=== PATIENT | female | born 1975 | race Native Hawaiian/Other Pacific Islander ===

== ENCOUNTER 2018-06-14 23:20 | Inpatient (IN) | payer MEDICAID, OTHER ==
[2018-06-15 00:29] LABS: Basophils % (Auto) 0.3 % (0.0-1.8); Eosinophils % (Auto) 0.1 % (0.0-4.3); Hemoglobin 15.9 gm/dl (10.1-14.3); Lymphocytes # (Auto) 1.1 K/mm3 (1.2-5.4); Lymphocytes % (Auto) 8.7 % (13.4-35.0); Mean Corpuscular HGB Conc 35 % (30-34); Mean Corpuscular Hemoglobin 32 pg (28-32); Mean Corpuscular Volume 92 fl (79-97); Monocytes # (Auto) 0.3 K/mm3 (0.0-0.8); Monocytes % (Auto) 2.6 % (0.0-7.3); Platelet Count 246 K/mm3 (140-440); Red Blood Count 5.03 M/mm3 (3.65-5.03); Red Cell Distribution Width 13.6 % (13.2-15.2)
[2018-06-15 00:45] LABS: Alanine Aminotransferase 37 units/L (7-56); Albumin 4.9 g/dL (3.9-5); BUN/Creatinine Ratio 32; Blood Urea Nitrogen 19 mg/dL (7-17); Calcium 9.8 mg/dL (8.4-10.2); Hemolysis Index 5
[2018-06-15 02:29] LABS: Bacteria,Urine 1+ /HPF (Negative); Bilirubin,Urine NEG (Negative); Blood,Urine NEG (Negative); Color,Urine Yellow (Yellow); HCG Qualitative,Urine Negative (Negative); Mucus,Urine 3+ /HPF; Urobilinogen,Urine < 2.0 mg/dL (<2.0)
--- NOTE | 2018-06-15 06:32 | Emergency Department Report ---
ED Abdominal Pain HPI - General Chief Complaint: Abdominal Pain Stated Complaint: ABD PAIN/EMESIS Time Seen by Provider: 06/15/18 06:30 Source: patient, tube rebuilder Mode of arrival: Ambulatory Limitations: Language Barrier - History of Present Illness Initial Comments: This is a 42-year-old Portuguese-speaking female. I've obtained the history is Portuguese. She arrives here with her and her son. She states her abdominal pain began at about 11:00 last night. It is located in the epigastric to right upper quadrant region. She also feels it somewhat in the back but not prominently. She's had no fever or chills. She complains of nausea and vomiting. She's had no obvious signs of GI bleeding. She's had no prior emergency department visits for abdominal pain. Patient denies any prior surgery. She's not had a recent consumption of alcohol. She has no family history of gallstones that she is aware of. She has not recently traveled. MD Complaint: abdominal pain -: hour(s) Location: RUQ, epigastric Radiation: back (some associated back pain) Migration to: no migration Severity: moderate, severe Severity scale (0 -10): 0 Quality: aching Consistency: constant Improves With: nothing Worsens With: nothing Associated Symptoms: nausea, vomiting. denies: diarrhea, fever, chills - Related Data Home Medications Medication Instructions Recorded Confirmed Last Taken No Known Home Medications [No 04/30/14 12/28/15 Unknown Reported Home Medications] Allergies Allergy/AdvReac Type Severity Reaction Status Date / Time No Known Allergies Allergy Verified 06/14/18 23:39 ED Review of Systems ROS: Stated complaint: ABD PAIN/EMESIS Other details as noted in HPI Constitutional: denies: chills, fever Eyes: denies: eye pain, eye discharge, vision change ENT: denies: ear pain, throat pain Respiratory: denies: cough, shortness of breath, wheezing Cardiovascular: denies: chest pain, palpitations Endocrine: no symptoms reported Gastrointestinal: abdominal pain, nausea, vomiting. denies: diarrhea Genitourinary: denies: urgency, dysuria, discharge Musculoskeletal: denies: back pain, joint swelling, arthralgia Skin: denies: rash, lesions Neurological: denies: headache, weakness, paresthesias Psychiatric: denies: anxiety, depression Hematological/Lymphatic: denies: easy bleeding, easy bruising ED Past Medical Hx - Past Medical History Hx Hypertension: No Hx Congestive Heart Failure: No Hx Diabetes: No Hx Deep Vein Thrombosis: No Hx Renal Disease: No Hx Sickle Cell Disease: No Hx Seizures: No Hx Asthma: No Hx COPD: No Hx HIV: No - Surgical History Past Surgical History?: No - Social History Smoking Status: Never Smoker Substance Use Type: None - Medications Home Medications: Home Medications Medication Instructions Recorded Confirmed Last Taken Type No Known Home Medications [No 04/30/14 12/28/15 Unknown History Reported Home Medications] ED Physical Exam - General Limitations: Language Barrier General appearance: alert, in no apparent distress - Head Head exam: Present: atraumatic, normocephalic - Eye Eye exam: Present: normal appearance, PERRL, EOMI. Absent: scleral icterus - ENT ENT exam: Present: mucous membranes moist - Neck Neck exam: Present: normal inspection. Absent: tenderness, meningismus - Respiratory Respiratory exam: Present: normal lung sounds bilaterally. Absent: respiratory distress - Cardiovascular Cardiovascular Exam: Present: regular rate, normal rhythm. Absent: systolic murmur, diastolic murmur, rubs, gallop - GI/Abdominal GI/Abdominal exam: Present: soft, distended (perhaps mildly), tenderness ( epigastric discomfort negative Malik's), normal bowel sounds. Absent: guarding , rebound, rigid, organomegaly, mass, bruit, pulsatile mass, hernia - Extremities Exam Extremities exam: Present: normal inspection - Back Exam Back exam: Present: normal inspection - Neurological Exam Neurological exam: Present: alert, oriented X3, CN II-XII intact. Absent: motor sensory deficit - Psychiatric Psychiatric exam: Present: normal affect, normal mood - Skin Skin exam: Present: warm, dry, intact, normal color. Absent: rash ED Course Vital Signs 06/14/18 06/15/18 06/15/18 23:41 06:57 08:26 Temperature 98.0 F 97.6 F Pulse Rate 92 H 76 Respiratory 16 17 Rate Blood Pressure 112/78 Blood Pressure 101/70 [Left] O2 Sat by Pulse 98 99 96 Oximetry 06/15/18 06/15/18 06/15/18 08:31 08:35 08:36 Temperature 98.7 F Pulse Rate 66 Respiratory 14 Rate Blood Pressure 107/66 107/66 Blood Pressure 107/66 [Left] O2 Sat by Pulse 97 97 97 Oximetry 06/15/18 06/15/18 06/15/18 08:41 08:45 09:23 Temperature Pulse Rate Respiratory Rate Blood Pressure 107/66 107/66 107/66 Blood Pressure [Left] O2 Sat by Pulse 97 97 99 Oximetry 06/15/18 06/15/18 06/15/18 09:25 09:31 09:35 Temperature Pulse Rate Respiratory Rate Blood Pressure 107/66 107/66 107/66 Blood Pressure [Left] O2 Sat by Pulse 98 98 98 Oximetry 06/15/18 06/15/18 06/15/18 09:41 09:45 09:51 Temperature Pulse Rate Respiratory Rate Blood Pressure 107/66 107/66 107/66 Blood Pressure [Left] O2 Sat by Pulse 98 98 98 Oximetry 06/15/18 06/15/18 06/15/18 09:55 10:00 10:05 Temperature Pulse Rate Respiratory Rate Blood Pressure 107/66 124/83 124/83 Blood Pressure [Left] O2 Sat by Pulse 97 99 98 Oximetry 06/15/18 06/15/18 06/15/18 10:11 10:15 10:21 Temperature Pulse Rate Respiratory Rate Blood Pressure 124/83 124/83 124/83 Blood Pressure [Left] O2 Sat by Pulse 98 99 98 Oximetry 06/15/18 06/15/18 06/15/18 10:25 10:31 10:35 Temperature Pulse Rate Respiratory Rate Blood Pressure 124/83 124/83 124/83 Blood Pressure [Left] O2 Sat by Pulse 97 99 99 Oximetry 06/15/18 06/15/18 06/15/18 10:41 10:45 10:51 Temperature Pulse Rate Respiratory Rate Blood Pressure 124/83 124/83 124/83 Blood Pressure [Left] O2 Sat by Pulse 99 99 99 Oximetry 06/15/18 06/15/18 06/15/18 10:55 11:01 11:05 Temperature Pulse Rate Respiratory Rate Blood Pressure 124/83 110/85 110/85 Blood Pressure [Left] O2 Sat by Pulse 98 100 99 Oximetry 06/15/18 06/15/18 06/15/18 11:11 11:15 11:21 Temperature Pulse Rate Respiratory Rate Blood Pressure 110/85 110/85 110/85 Blood Pressure [Left] O2 Sat by Pulse 98 99 99 Oximetry 0706/15/18 06/15/18 11:25 11:31 11:35 Temperature Pulse Rate Respiratory Rate Blood Pressure 110/85 110/85 110/85 Blood Pressure [Left] O2 Sat by Pulse 98 99 99 Oximetry 06/15/18 06/15/18 11:41 11:45 Temperature Pulse Rate Respiratory Rate Blood Pressure 110/85 110/85 Blood Pressure [Left] O2 Sat by Pulse 98 99 Oximetry - Reevaluation(s) Reevaluation #1: It appeared most likely diagnosis was biliary colic. However the patient's ultrasound was negative. We proceeded to CT exam. 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 Surgery was paged. The patient was admitted to Dr. Schroeder for further care and evaluation. She had persistent nausea. Therefore an NG tube was placed. His position was verified on KUB as adequate. Dr. Novak has been consulted. I will defer to her as to whether and when she wants to repeat the patient's CT scan with oral contrast. 06/15/18 15:29 Reevaluation #2: Spoke to surgery and she is aware of the consultation. She was not that impressed with the CT findings. He stated that gastroenteritis might still be a possibility. The patient was admitted in stable condition by Dr. Schroeder. 06/15/18 16:20 ED Medical Decision Making - Lab Data Result diagrams: 06/14/18 23:53 06/14/18 23:53 Laboratory Results - last 24 hr 06/14/18 06/14/18 06/15/18 23:53 23:53 01:12 WBC 13.1 H RBC 5.03 Hgb 15.9 H Hct 46.0 H MCV 92 MCH 32 MCHC 35 H RDW 13.6 Plt Count 246 Lymph % (Auto) 8.7 L Day % (Auto) 2.6 Eos % (Auto) 0.1 Baso % (Auto) 0.3 Lymph # 1.1 L Day # 0.3 Eos # 0.0 Baso # 0.0 Seg Neutrophils % 88.3 H Seg Neutrophils # 11.6 H Sodium 139 Potassium 4.1 Chloride 100.0 Carbon Dioxide 24 Anion Gap 19 BUN 19 H Creatinine 0.6 L Estimated GFR > 60 BUN/Creatinine Ratio 32 Glucose 144 H Calcium 9.8 Total Bilirubin 0.50 AST 30 ALT 37 Alkaline Phosphatase 80 Total Protein 8.0 Albumin 4.9 Albumin/Globulin Ratio 1.6 Lipase Urine Color Yellow Urine Turbidity Clear Urine pH 6.0 Ur Specific [place] 1.030 Urine Protein 100 mg/dl Urine Glucose (UA) Neg Urine Ketones 20 Urine Blood Neg Urine Nitrite Neg Urine Bilirubin Neg Urine Urobilinogen < 2.0 Ur Leukocyte Esterase Neg Urine WBC (Auto) 3.0 Urine RBC (Auto) 1.0 U Epithel Cells (Auto) 5.0 Urine Bacteria (Auto) 1+ Urine Mucus 3+ Urine HCG, Qual Negative 06/15/18 04:50 WBC RBC Hgb Hct MCV MCH MCHC RDW Plt Count Lymph % (Auto) Day % (Auto) Eos % (Auto) Baso % (Auto) Lymph # Day # Eos # Baso # Seg Neutrophils % Seg Neutrophils # Sodium Potassium Chloride Carbon Dioxide Anion Gap BUN Creatinine Estimated GFR BUN/Creatinine Ratio Glucose Calcium Total Bilirubin AST ALT Alkaline Phosphatase Total Protein Albumin Albumin/Globulin Ratio Lipase 11 L Urine Color Urine Turbidity Urine pH Ur Specific [place] Urine Protein Urine Glucose (UA) Urine Ketones Urine Blood Urine Nitrite Urine Bilirubin Urine Urobilinogen Ur Leukocyte Esterase Urine WBC (Auto) Urine RBC (Auto) U Epithel Cells (Auto) Urine Bacteria (Auto) Urine Mucus Urine HCG, Qual - EKG Data -: EKG Interpreted by [place] EKG shows normal: sinus rhythm, axis, intervals, QRS complexes, ST-T waves Rate: normal - EKG Data Interpretation: nonspecific ST-T wave chan (motion artifact/nonspecific changes) - Radiology Data Radiology results: report reviewed (small bowel obstruction per radiologist) Critical care attestation.: If time is entered above; I have spent that time in minutes in the direct care of this critically ill patient, excluding procedure time. ED Disposition Clinical Impression: Partial small bowel obstruction Disposition: OP ADMIT IP TO THIS HOSP Is pt being admited?: Yes Does the pt Need Aspirin: No Condition: Stable Instructions: Abdominal Pain (ED) Referrals: PRIMARY CAREMD [Primary Care Provider] - 3-5 Days Time of Disposition: 16:21
[2018-06-15] MEDS ORDERED: MORPHINE IV ONE ×2 (08:11→11:09)
[2018-06-15] MEDS ORDERED: ZOFRAN IV ONE ×2 (08:11→11:09)
[2018-06-15] MEDS ORDERED: NACL 0.9% 1000 ML 2,000 ML IV ONE (08:20)
[2018-06-15] MEDS ORDERED: PROTONIX IV ONE (08:20)
[2018-06-15] MEDS ORDERED: ZOSYN/NS 4.5GM/100ML 4.5 GM/100 ML VIAL IV ONE (08:30)
--- NOTE | 2018-06-15 09:20 | Ultrasound Report ---
ULTRASOUND ABDOMEN COMPLETE: TECHNIQUE: Transabdominal ultrasound with color Doppler interrogation. HISTORY: Right upper quadrant pain. COMPARISON: none. FINDINGS: LIVER: Moderate fatty infiltration is identified throughout the liver parenchyma. No focal mass, surface nodularity or enlargement is appreciated. BILIARY SYSTEM: Normal. PANCREAS: Normal. SPLEEN: Normal. KIDNEYS: Normal. AORTA/IVC: Normal. ASCITES: None. IMPRESSION: Hepatic steatosis.
--- NOTE | 2018-06-15 12:52 | Cat Scan Report ---
CT ABDOMEN PELVIS WITH CONTRAST: HISTORY: Right upper quadrant pain. COMPARISON: none. TECHNIQUE: Helical CT in 1.25mm intervals following IV contrast. Sagittal and coronal reconstructions. FINDINGS: Lung bases: Normal. Liver: Moderate fatty infiltration throughout the liver parenchyma. No enlargement or focal mass. Biliary system: Normal. Pancreas: Normal. Spleen: Normal. Kidneys/ureters/bladder: Normal. Adrenal glands: Normal. Aorta: Normal. Intestines: There are a few mildly dilated and fluid filled loops of small bowel in the midabdomen. Distal small bowel loops and colon are decompressed. No obvious mass or focal inflammation. Appendix: Normal. Pelvic viscera: Normal. Ascites: None. Adenopathy: None. Musculoskeletal: Normal. IMPRESSION: Mildly dilated small bowel loops are identified concerning for partial small bowel obstruction. Hepatic steatosis.
[2018-06-15] MEDS ORDERED: REGLAN IV ONE (13:58)
[2018-06-15] MEDS ORDERED: DILAUDID IV ONE (14:01)
--- NOTE | 2018-06-15 17:51 | XRay Report ---
FINAL REPORT EXAM: XR ABDOMEN 1V AP HISTORY: NG tube placement TECHNIQUE: Portable examination of the abdomen PRIORS: None. FINDINGS: Pneumoperitoneum: None visible. Abnormal fluid levels: None visible. Visceromegaly: None visible. Mass: None visible. Abnormal calcification: None. Intestinal distention: None. Intestinal obstructive pattern: None. Stool volume: Normal. Retained IV contrast in the bilateral renal collecting system and partly visualized urinary bladder. Distal tip gastric tube is present in the central upper abdomen, in the expected region of the mid stomach. IMPRESSION: Nonspecific bowel gas pattern without intestinal distention in the visualized abdomen Distal tip gastric tube is present in the central upper abdomen, in the expected region of the mid stomach.
--- NOTE | 2018-06-15 18:25 | Consultation ---
History of Present Illness Consult date: 06/15/18 Chief complaint: abd pain, n/v - History of present illness History of present illness: 42-year-old female with no past medical history presented to the emergency room with complaints of abdominal pain, nausea, vomiting. The patient states that she was feeling well up until yesterday when she started to experience epigastric abdominal pain which is radiating to bilateral flanks. This was sharp in nature and of moderate intensity. This was associated with nausea and emesis which was nonbilious and nonbloody. The emesis was white in color. She has never experienced the symptoms in the past. She denies sick contacts or recent travel. There are no specific factors that brought on the symptoms. She states that she's been having normal bowel movements and passing flatus. An NG tube was placed in the emergency room for findings concerning for partial small bowel obstruction on a CAT scan. Patient states that her pain has now resolved and that she feels hungry. Past History Past Medical History: No medical history Past Surgical History: No surgical history Social history: no significant social history Family history: no significant family history Medications and Allergies Allergies Allergy/AdvReac Type Severity Reaction Status Date / Time No Known Allergies Allergy Verified 06/15/18 16:53 Home Medications Medication Instructions Recorded Confirmed Last Taken Type No Known Home Medications [No 04/30/14 06/15/18 Unknown History Reported Home Medications] Active Meds: Active Medications Dextrose/Sodium Chloride (D5ns) 1,000 mls @ 125 mls/hr IV DIRECT BIB Review of Systems All systems: negative (10 point review of systems was performed and negative except for that listed in HPI) Exam Vital Signs Temp Pulse Resp BP Pulse Ox 98.0 F 92 H 16 112/78 98 06/14/18 23:41 06/14/18 23:41 06/14/18 23:41 06/14/18 23:41 06/14/18 23:41 Narrative exam: Gen.: Awake, alert, oriented 3. No apparent distress NGT: NG tube in place with light green and red drainage CV: S1, S2 present Respiratory: Even and unlabored Abdomen: Soft, nondistended, nontender. No rebound, rigidity, guarding Extremities: No clubbing, cyanosis, edema Results - Labs 06/14/18 23:53 06/14/18 23:53 Abnormal lab results 06/14/18 06/14/18 06/15/18 Range/Units 23:53 23:53 04:50 WBC 13.1 H (4.5-11.0) K/mm3 Hgb 15.9 H (10.1-14.3) gm/dl Hct 46.0 H (30.3-42.9) % MCHC 35 H (30-34) % Lymph % (Auto) 8.7 L (13.4-35.0) % Lymph # 1.1 L (1.2-5.4) K/mm3 Seg Neutrophils % 88.3 H (40.0-70.0) % Seg Neutrophils # 11.6 H (1.8-7.7) K/mm3 BUN 19 H (7-17) mg/dL Creatinine 0.6 L (0.7-1.2) mg/dL Glucose 144 H (65-100) mg/dL Lipase 11 L (13-60) units/L Diabetes panel 06/14/18 Range/Units 23:53 Sodium 139 (137-145) mmol/L Potassium 4.1 (3.6-5.0) mmol/L Chloride 100.0 (98-107) mmol/L Carbon Dioxide 24 (22-30) mmol/L BUN 19 H (7-17) mg/dL Creatinine 0.6 L (0.7-1.2) mg/dL Glucose 144 H (65-100) mg/dL Calcium 9.8 (8.4-10.2) mg/dL AST 30 (5-40) units/L ALT 37 (7-56) units/L Alkaline Phosphatase 80 (35-129) units/L Total Protein 8.0 (6.3-8.2) g/dL Albumin 4.9 (3.9-5) g/dL Calcium panel 06/14/18 Range/Units 23:53 Calcium 9.8 (8.4-10.2) mg/dL Albumin 4.9 (3.9-5) g/dL Pituitary panel 06/14/18 Range/Units 23:53 Sodium 139 (137-145) mmol/L Potassium 4.1 (3.6-5.0) mmol/L Chloride 100.0 (98-107) mmol/L Carbon Dioxide 24 (22-30) mmol/L BUN 19 H (7-17) mg/dL Creatinine 0.6 L (0.7-1.2) mg/dL Glucose 144 H (65-100) mg/dL Calcium 9.8 (8.4-10.2) mg/dL Adrenal panel 06/14/18 Range/Units 23:53 Sodium 139 (137-145) mmol/L Potassium 4.1 (3.6-5.0) mmol/L Chloride 100.0 (98-107) mmol/L Carbon Dioxide 24 (22-30) mmol/L BUN 19 H (7-17) mg/dL Creatinine 0.6 L (0.7-1.2) mg/dL Glucose 144 H (65-100) mg/dL Calcium 9.8 (8.4-10.2) mg/dL Total Bilirubin 0.50 (0.1-1.2) mg/dL AST 30 (5-40) units/L ALT 37 (7-56) units/L Alkaline Phosphatase 80 (35-129) units/L Total Protein 8.0 (6.3-8.2) g/dL Albumin 4.9 (3.9-5) g/dL - Imaging Abdominal x-ray: report reviewed, image reviewed CT scan - abdomen: report reviewed, image reviewed CT scan - pelvis: report reviewed, image reviewed Assessment and Plan 42-year-old female with 1. Abdominal pain likely secondary to gastroenteritis, low suspicion for partial small bowel obstruction 2. Dehydration Plan: 1. NGT inserted in ER. Will continue to low continuous suction for tonight 2. strict I/Os 3. IVF, NPO except ice chips 4. repeat cbc, bmp in am 5. KUB in am 6. further recs pending patient's clinical course Thank you for this consultation, please call with questions or concerns.
--- NOTE | 2018-06-16 00:48 | History and Physical Report ---
History of Present Illness Date of examination: 06/15/18 Date of admission: 06/15/18 15:19 Past History Past Medical History: No medical history Past Surgical History: No surgical history Social history: no significant social history Family history: no significant family history Medications and Allergies Allergies Allergy/AdvReac Type Severity Reaction Status Date / Time No Known Allergies Allergy Verified 06/15/18 16:53 Home Medications Medication Instructions Recorded Confirmed Last Taken Type No Known Home Medications [No 04/30/14 06/15/18 Unknown History Reported Home Medications] Active Meds: Active Medications Dextrose/Sodium Chloride (D5ns) 1,000 mls @ 125 mls/hr IV DIRECT BIB Exam - Constitutional Vitals: Temp Pulse Resp BP Pulse Ox 97.6 F 60 20 84/47 96 06/15/18 23:00 06/15/18 23:00 06/15/18 23:00 06/15/18 23:00 06/15/18 23:00 Results - Labs CBC & Chem 7: 06/14/18 23:53 06/14/18 23:53 Labs: Laboratory Last Values WBC 13.1 K/mm3 (4.5-11.0) H 06/14/18 23:53 RBC 5.03 M/mm3 (3.65-5.03) 06/14/18 23:53 Hgb 15.9 gm/dl (10.1-14.3) H 06/14/18 23:53 Hct 46.0 % (30.3-42.9) H 06/14/18 23:53 MCV 92 fl (79-97) 06/14/18 23:53 MCH 32 pg (28-32) 06/14/18 23:53 MCHC 35 % (30-34) H 06/14/18 23:53 RDW 13.6 % (13.2-15.2) 06/14/18 23:53 Plt Count 246 K/mm3 (140-440) 06/14/18 23:53 Lymph % (Auto) 8.7 % (13.4-35.0) L 06/14/18 23:53 [place] % (Auto) 2.6 % (0.0-7.3) 06/14/18 23:53 Eos % (Auto) 0.1 % (0.0-4.3) 06/14/18 23:53 Baso % (Auto) 0.3 % (0.0-1.8) 06/14/18 23:53 Lymph # 1.1 K/mm3 (1.2-5.4) L 06/14/18 23:53 [place] # 0.3 K/mm3 (0.0-0.8) 06/14/18 23:53 Eos # 0.0 K/mm3 (0.0-0.4) 06/14/18 23:53 Baso # 0.0 K/mm3 (0.0-0.1) 06/14/18 23:53 Seg Neutrophils % 88.3 % (40.0-70.0) H 06/14/18 23:53 Seg Neutrophils # 11.6 K/mm3 (1.8-7.7) H 06/14/18 23:53 Sodium 139 mmol/L (137-145) 06/14/18 23:53 Potassium 4.1 mmol/L (3.6-5.0) 06/14/18 23:53 Chloride 100.0 mmol/L (98-107) 06/14/18 23:53 Carbon Dioxide 24 mmol/L (22-30) 06/14/18 23:53 Anion Gap 19 mmol/L 06/14/18 23:53 BUN 19 mg/dL (7-17) H 06/14/18 23:53 Creatinine 0.6 mg/dL (0.7-1.2) L 06/14/18 23:53 Estimated GFR > 60 ml/min 06/14/18 23:53 BUN/Creatinine Ratio 32 % 06/14/18 23:53 Glucose 144 mg/dL (65-100) H 06/14/18 23:53 Lactic Acid 1.50 mmol/L (0.7-2.0) 06/15/18 08:29 Calcium 9.8 mg/dL (8.4-10.2) 06/14/18 23:53 Total Bilirubin 0.50 mg/dL (0.1-1.2) 06/14/18 23:53 AST 30 units/L (5-40) 06/14/18 23:53 ALT 37 units/L (7-56) 06/14/18 23:53 Alkaline Phosphatase 80 units/L (35-129) 06/14/18 23:53 Total Protein 8.0 g/dL (6.3-8.2) 06/14/18 23:53 Albumin 4.9 g/dL (3.9-5) 06/14/18 23:53 Albumin/Globulin Ratio 1.6 % 06/14/18 23:53 Lipase 11 units/L (13-60) L 06/15/18 04:50 Urine Color Yellow (Yellow) 06/15/18 01:12 Urine Turbidity Clear (Clear) 06/15/18 01:12 Urine pH 6.0 (5.0-7.0) 06/15/18 01:12 Ur Specific [place] 1.030 (1.003-1.030) 06/15/18 01:12 Urine Protein 100 mg/dl mg/dL (Negative) 06/15/18 01:12 Urine Glucose (UA) Neg mg/dL (Negative) 06/15/18 01:12 Urine Ketones 20 mg/dL (Negative) 06/15/18 01:12 Urine Blood Neg (Negative) 06/15/18 01:12 Urine Nitrite Neg (Negative) 06/15/18 01:12 Urine Bilirubin Neg (Negative) 06/15/18 01:12 Urine Urobilinogen < 2.0 mg/dL (<2.0) 06/15/18 01:12 Ur Leukocyte Esterase Neg (Negative) 06/15/18 01:12 Urine WBC (Auto) 3.0 /HPF (0.0-6.0) 06/15/18 01:12 Urine RBC (Auto) 1.0 /HPF (0.0-6.0) 06/15/18 01:12 U Epithel Cells (Auto) 5.0 /HPF (0-13.0) 06/15/18 01:12 Urine Bacteria (Auto) 1+ /HPF (Negative) 06/15/18 01:12 Urine Mucus 3+ /HPF 06/15/18 01:12 Urine HCG, Qual Negative (Negative) 06/15/18 01:12
[2018-06-16] MEDS ORDERED: TYLENOL PO PRN (00:49)
[2018-06-16] MEDS ORDERED: MORPHINE IV PRN (00:49)
[2018-06-16] MEDS ORDERED: ZOFRAN IV PRN (00:49)
[2018-06-16] MEDS ORDERED: SODIUM CHLORIDE FLUSH SYRINGE 10 ML IV PRN (00:49)
[2018-06-16] MEDS ORDERED: AMBIEN PO PRN (00:49)
[2018-06-16] MEDS: D5NS 1,000 ML IV SCH ×2 (02:54→11:21)
--- NOTE | 2018-06-16 06:41 | Event Note ---
Date: 06/15/18 See H/p in reports [facility]
[2018-06-16] MEDS: ZOSYN/NS 4.5GM/100ML 4.5 GM/100 ML VIAL IV SCH ×2 (07:22→14:13)
--- NOTE | 2018-06-16 08:13 | History and Physical Report ---
CHIEF COMPLAINT: Abdominal pain, nausea, vomiting since yesterday. HISTORY OF PRESENT ILLNESS: A 42-year-old with no significant past medical history, comes in for diffuse abdominal pain, nausea, and vomiting about 6-8 times since yesterday prompt. Unable to eat. Abdominal pain is about 8 on a scale of 1-10. No diarrhea. No sick contacts. No surgeries in the past. No recent travel. The patient had NG tube placed in the Emergency Room for partial small-bowel obstruction on the CAT scan. After the NG tube, her pain has become better. The pain is about 7 on a scale of 1-10. PAST MEDICAL HISTORY: No significant past medical history. PAST SURGICAL HISTORY: None. SOCIAL HISTORY: Does not smoke. No alcohol, no recreational drugs. Lives with family. FAMILY HISTORY: No significant family history. REVIEW OF SYSTEMS: Significant for nausea, vomiting, and abdominal pain of 1 day duration. Otherwise, review of systems is essentially negative. PHYSICAL EXAMINATION: GENERAL: Middle-aged female in mild distress secondary to abdominal pain. VITAL SIGNS: Blood pressure was 190, blood pressure 98/66, temperature 97.6, sats 100%, pulse is 76. HEENT: Unremarkable. Pupils equal and reactive. NECK: Supple, no lymphadenopathy, no thyromegaly. LUNGS: Clear to auscultation and percussion. Good air entry. CARDIOVASCULAR: S1, S2 heard. No gallop, no murmur, no rub. Apical impulse in left fifth intercostal space and midclavicular line. ABDOMEN: Slightly distended and decreased bowel sounds present. Tender all over. No guarding, no rigidity. Hernial orifices are normal. EXTREMITIES: Good pedal pulses. No pedal edema. LABORATORY DATA AND IMAGING STUDIES: CT of the abdomen shows few mildly dilated and fluid filled loops of small bowel in the mid abdomen. Distal small bowel and colon are decompressed. No obvious mass or focal inflammation. Abdominal x-ray shows nonspecific bowel gas pattern without intestinal distention and the visualized abdomen. Distal tip of the gastric tube is present in the central upper abdomen in the expected region of the mid stomach. Right upper quadrant sonogram, hepatic steatosis, no cholecystitis. Labs are significant for white count of 13,100, H and H of 15.9 and 46.0, platelet count of 246,000. Hemoglobin A1c 6.1. Glucose is 144. Electrolytes are normal. BUN and creatinine is 19 and 0.6. Urine is negative. ASSESSMENT AND PLAN: 1. Small-bowel obstruction, partial. We will treat conservatively for the time being and we will also consult Surgery. NG tube to low suction. IV antibiotics empirically. Strict I's and O's. Repeat the KUB in the morning. 2. Hyperglycemia, mild. We will trend it. If necessary, coverage. 3. Deep venous thrombosis prophylaxis, Lovenox 40 mg subcutaneous daily. JOB# [id number] VSM/NTS
--- NOTE | 2018-06-16 08:23 | Progress Note ---
Hospitalist Physical - Constitutional Vitals: Temp Pulse Resp BP Pulse Ox 98.8 F 72 18 99/63 95 06/16/18 05:09 06/16/18 05:09 06/16/18 05:09 06/16/18 05:09 06/16/18 05:09 Results - Labs CBC & Chem 7: 06/14/18 23:53 06/14/18 23:53 Labs: Laboratory Last Values WBC 13.1 K/mm3 (4.5-11.0) H 06/14/18 23:53 RBC 5.03 M/mm3 (3.65-5.03) 06/14/18 23:53 Hgb 15.9 gm/dl (10.1-14.3) H 06/14/18 23:53 Hct 46.0 % (30.3-42.9) H 06/14/18 23:53 MCV 92 fl (79-97) 06/14/18 23:53 MCH 32 pg (28-32) 06/14/18 23:53 MCHC 35 % (30-34) H 06/14/18 23:53 RDW 13.6 % (13.2-15.2) 06/14/18 23:53 Plt Count 246 K/mm3 (140-440) 06/14/18 23:53 Lymph % (Auto) 8.7 % (13.4-35.0) L 06/14/18 23:53 Pike % (Auto) 2.6 % (0.0-7.3) 06/14/18 23:53 Eos % (Auto) 0.1 % (0.0-4.3) 06/14/18 23:53 Baso % (Auto) 0.3 % (0.0-1.8) 06/14/18 23:53 Lymph # 1.1 K/mm3 (1.2-5.4) L 06/14/18 23:53 Pike # 0.3 K/mm3 (0.0-0.8) 06/14/18 23:53 Eos # 0.0 K/mm3 (0.0-0.4) 06/14/18 23:53 Baso # 0.0 K/mm3 (0.0-0.1) 06/14/18 23:53 Seg Neutrophils % 88.3 % (40.0-70.0) H 06/14/18 23:53 Seg Neutrophils # 11.6 K/mm3 (1.8-7.7) H 06/14/18 23:53 Sodium 139 mmol/L (137-145) 06/14/18 23:53 Potassium 4.1 mmol/L (3.6-5.0) 06/14/18 23:53 Chloride 100.0 mmol/L (98-107) 06/14/18 23:53 Carbon Dioxide 24 mmol/L (22-30) 06/14/18 23:53 Anion Gap 19 mmol/L 06/14/18 23:53 BUN 19 mg/dL (7-17) H 06/14/18 23:53 Creatinine 0.6 mg/dL (0.7-1.2) L 06/14/18 23:53 Estimated GFR > 60 ml/min 06/14/18 23:53 BUN/Creatinine Ratio 32 % 06/14/18 23:53 Glucose 144 mg/dL (65-100) H 06/14/18 23:53 Hemoglobin A1c 6.1 % (4-6) H 06/14/18 23:53 Lactic Acid 1.50 mmol/L (0.7-2.0) 06/15/18 08:29 Calcium 9.8 mg/dL (8.4-10.2) 06/14/18 23:53 Total Bilirubin 0.50 mg/dL (0.1-1.2) 06/14/18 23:53 AST 30 units/L (5-40) 06/14/18 23:53 ALT 37 units/L (7-56) 06/14/18 23:53 Alkaline Phosphatase 80 units/L (35-129) 06/14/18 23:53 Total Protein 8.0 g/dL (6.3-8.2) 06/14/18 23:53 Albumin 4.9 g/dL (3.9-5) 06/14/18 23:53 Albumin/Globulin Ratio 1.6 % 06/14/18 23:53 Lipase 11 units/L (13-60) L 06/15/18 04:50 Urine Color Yellow (Yellow) 06/15/18 01:12 Urine Turbidity Clear (Clear) 06/15/18 01:12 Urine pH 6.0 (5.0-7.0) 06/15/18 01:12 Ur Specific [place] 1.030 (1.003-1.030) 06/15/18 01:12 Urine Protein 100 mg/dl mg/dL (Negative) 06/15/18 01:12 Urine Glucose (UA) Neg mg/dL (Negative) 06/15/18 01:12 Urine Ketones 20 mg/dL (Negative) 06/15/18 01:12 Urine Blood Neg (Negative) 06/15/18 01:12 Urine Nitrite Neg (Negative) 06/15/18 01:12 Urine Bilirubin Neg (Negative) 06/15/18 01:12 Urine Urobilinogen < 2.0 mg/dL (<2.0) 06/15/18 01:12 Ur Leukocyte Esterase Neg (Negative) 06/15/18 01:12 Urine WBC (Auto) 3.0 /HPF (0.0-6.0) 06/15/18 01:12 Urine RBC (Auto) 1.0 /HPF (0.0-6.0) 06/15/18 01:12 U Epithel Cells (Auto) 5.0 /HPF (0-13.0) 06/15/18 01:12 Urine Bacteria (Auto) 1+ /HPF (Negative) 06/15/18 01:12 Urine Mucus 3+ /HPF 06/15/18 01:12 Urine HCG, Qual Negative (Negative) 06/15/18 01:12
--- NOTE | 2018-06-16 08:28 | XRay Report ---
AP ABDOMEN: HISTORY: Partial small bowel obstruction. Mild prominence of small bowel loops has resolved since the CT performed yesterday. The abdominal gas pattern is unremarkable. No masses or organomegaly is identified and there is no gross evidence of free air or fluid. No significant soft tissue calcifications are noted. A nasogastric tube terminates in the descending duodenum. There is residual contrast agent in the bladder. IMPRESSION: Unremarkable abdomen.
[2018-06-16 08:37] LABS: Hematocrit 39.9 % (30.3-42.9); Hemoglobin 13.5 gm/dl (10.1-14.3); Mean Corpuscular HGB Conc 34 % (30-34); Mean Corpuscular Hemoglobin 31 pg (28-32); Mean Corpuscular Volume 92 fl (79-97); Platelet Count 191 K/mm3 (140-440); Red Blood Count 4.33 M/mm3 (3.65-5.03); Red Cell Distribution Width 13.6 % (13.2-15.2)
[2018-06-16 08:46] LABS: BUN/Creatinine Ratio 32; Blood Urea Nitrogen 19 mg/dL (7-17); Calcium 8.2 mg/dL (8.4-10.2); Hemolysis Index 7
--- NOTE | 2018-06-16 09:20 | Progress Note ---
Assessment and Plan 42-year-old female with 1. Abdominal pain likely secondary to gastroenteritis, low suspicion for partial small bowel obstruction 2. Dehydration Plan: 1. KUB reviewed from this am, no obstruction. DC NGT 2. start full liquid diet 3. c/w IVF 4. if patient tolerates full liquids, may be discharged home today. May adv to soft diet as tolerated Thank you for this consultation, please call with questions or concerns. Subjective Date of service: 06/16/18 Narrative: Pt seen and examined. No overnight events. No abdominal pain. No f/c, n/v. Has not had BM but is passing flatus. Objective Vital Signs - 12hr 06/15/18 06/15/18 06/16/18 22:00 23:00 04:53 Temperature 97.6 F Pulse Rate 60 66 Respiratory 20 20 Rate Blood Pressure 84/47 [Left] O2 Sat by Pulse 96 96 95 Oximetry 06/16/18 05:09 Temperature 98.8 F Pulse Rate 72 Respiratory 18 Rate Blood Pressure 99/63 [Left] O2 Sat by Pulse 95 Oximetry - General physical appearance Narrative Exam: Gen: AAOx3. NAD CV: S1, S2+ Resp: even and unlabored Abd: soft, NT, ND Ext: no c/c/e - Labs 06/16/18 08:01 06/16/18 08:01 Diabetes panel 06/14/18 06/16/18 Range/Units 23:53 08:01 Sodium 142 (137-145) mmol/L Potassium 4.0 (3.6-5.0) mmol/L Chloride 107.5 H (98-107) mmol/L Carbon Dioxide 24 (22-30) mmol/L BUN 19 H (7-17) mg/dL Creatinine 0.6 L (0.7-1.2) mg/dL Glucose 117 H (65-100) mg/dL Hemoglobin A1c 6.1 H (4-6) % Calcium 8.2 L D (8.4-10.2) mg/dL Calcium panel 06/16/18 Range/Units 08:01 Calcium 8.2 L D (8.4-10.2) mg/dL Pituitary panel 06/16/18 Range/Units 08:01 Sodium 142 (137-145) mmol/L Potassium 4.0 (3.6-5.0) mmol/L Chloride 107.5 H (98-107) mmol/L Carbon Dioxide 24 (22-30) mmol/L BUN 19 H (7-17) mg/dL Creatinine 0.6 L (0.7-1.2) mg/dL Glucose 117 H (65-100) mg/dL Calcium 8.2 L D (8.4-10.2) mg/dL Adrenal panel 06/16/18 Range/Units 08:01 Sodium 142 (137-145) mmol/L Potassium 4.0 (3.6-5.0) mmol/L Chloride 107.5 H (98-107) mmol/L Carbon Dioxide 24 (22-30) mmol/L BUN 19 H (7-17) mg/dL Creatinine 0.6 L (0.7-1.2) mg/dL Glucose 117 H (65-100) mg/dL Calcium 8.2 L D (8.4-10.2) mg/dL - Imaging Abdominal x-ray: report reviewed, image reviewed
[2018-06-16] MEDS ORDERED: PEPCID IV SCH (10:00)
[2018-06-16] MEDS ORDERED: SODIUM CHLORIDE FLUSH SYRINGE 10 ML IV SCH (10:00)
--- NOTE | 2018-06-16 18:17 | Discharge Summary ---
Providers - Providers Date of Admission: 06/15/18 15:19 Date of discharge: 06/16/18 Attending physician: NEHA MORGAN 06/15/18 15:17 Consult to Physician [CONS] Urgent Comment: Consulting Provider: RONAK BAILEY Physician Instructions: Reason For Exam: Partial SBO Primary care physician: [employer] Hospitalization Condition: Fair Disposition: DC-01 TO HOME OR SELFCARE Exam - Constitutional Vitals: Temp Pulse Resp BP Pulse Ox 98.8 F 72 18 99/63 95 06/16/18 05:09 06/16/18 05:09 06/16/18 05:09 06/16/18 05:09 06/16/18 05:09 Plan Activity: no restrictions Diet: other (soft diet, advance as tolerated) Follow up with: PRIMARY CARE, [Primary Care Provider] - 3-5 Days
[2018-06-16 18:38] VITALS: BP 97/70
[2018-06-16] MEDS ORDERED: LOVENOX SUB-Q SCH (22:00)
== END 2018-06-16 20:00 | disposition home or self-care (01) | DRG 392 ==
LOC: ED 23:20 → 3A 06-15 15:19
PROVIDERS: ADMIT Internal Medicine; ATTEND Internal Medicine
DX: K52.9 Noninfective gastroenteritis and colitis, unspecified (principal); K56.600 Partial intestinal obstruction, unspecified as to cause; M54.9 Dorsalgia, unspecified; E86.0 Dehydration; R73.9 Hyperglycemia, unspecified
CPT/HCPCS: 36415; 74018; 74177; 76700; 80048; 80053; 81001; 81025; 82140; 83036; 83690; 85025; 85027; 87040; 87086; 96365; 96375; 96376; C9113; J1170; J2270; J2405; J2543; J2765; J7030; J7042; Q9967